=== PATIENT | female | born 1950 | race Caucasian/White ===

== ENCOUNTER 2021-07-03 12:46 | Emergency (ER) | payer OTHER ==
[~2021-07-03 12:46] MED LIST: ASPIRIN EC81 MG PO; COZAAR100 MG PO; CRESTOR20 MG PO; GLUCOTROL10 MG PO; HUMALOG 75100 UNIT/M SC; HYDROCODONE-APA1 TAB PO; K-DUR20 MEQ PO; LANTUS **100 UNITS/ SC; NEURONTIN400 MG PO; NORVASC5 MG PO; PAXIL40 MG PO; TOLTERODINE TART4 MG PO; WELLBUTRIN XL150 MG PO; ZAROXOLYN2.5 MG PO
== END 2021-07-03 17:47 | disposition home or self-care (01) ==
LOC: FER 12:46
DX: S86.912A Strain of unspecified muscle(s) and tendon(s) at lower leg level, left leg, initial encounter (principal); M17.12 Unilateral primary osteoarthritis, left knee; I10 Essential (primary) hypertension; E11.9 Type 2 diabetes mellitus without complications; Z88.0 Allergy status to penicillin; X58.XXXA Exposure to other specified factors, initial encounter
CPT/HCPCS: 73564; 93971

== ENCOUNTER 2021-08-12 18:16 | Emergency (ER) | payer OTHER ==
[2021-08-12 21:01] LABS: INFLUENZA A NAA NEGATIVE (NEGATIVE)
== END 2021-08-12 19:43 | disposition left against medical advice (07) ==
LOC: FER 18:16
PROVIDERS: Emergency Medicine
DX: U07.1 COVID-19 (principal); Z53.8 Procedure and treatment not carried out for other reasons
CPT/HCPCS: 99281; U0002